=== PATIENT | female | born 1995 | race Caucasian/White ===

== ENCOUNTER 2019-09-14 06:42 | Outpatient (CLI) | payer BC, OTHER ==
[2019-09-14 17:58] LABS: #Basophils 0.1 thou/uL (0.0-0.2); #Eosinphils 0.1 thou/uL (0.0-0.7); #Lymphocytes 2.1 thou/uL (1.20-3.40); #Monocytes 0.7 thou/uL (0.11-0.59); #Neutrophils 3.6 thou/uL (1.40-6.50); %Basophils 1.5 % (0.0-1.0); %Eosinophils 2.1 % (0.0-10.0); %Lymphocytes 31.7 % (21.0-51.0); %Monocytes 10.1 % (0.0-10.0); %Neutrophils 54.6 % (42.0-75.0); Hemoglobin 13.1 g/dL (12.0-16.0); Mean Corpuscular HGB CONC 33.1 g/dL (32.0-36.0); Mean Corpuscular Volume 90.7 fL (78.0-98.0); Mean Platelet Volume 7.7 fL (7.4-10.4); Platelet Count 233 thou/uL (130-400); RBC Distribution Width 12.4 % (11.5-14.5); Red Blood Cell (RBC) Count 4.36 mill/uL (4.20-5.40); White Blood Cell (WBC) Count 6.7 thou/uL (4.8-10.8)
[2019-09-14 18:13] LABS: Anion Gap 11 mmol/L (10-20); BUN (Urea Nitrogen) 12 mg/dL (7.0-18.7); Calc. Creatinine Clearance 0 mL/min (70-130); Calcium 9.7 mg/dL (7.8-10.44); Carbon Dioxide 26 mmol/L (22-29); Chloride 106 mmol/L (98-107); Estimated GFR-MDRD 86; Glucose 84 mg/dL (70-105); Potassium 4.2 mmol/L (3.5-5.1); Sodium 139 mmol/L (136-145)
[2019-09-15 18:04] LABS: SARS-CoV-2 MS2 Positive; SARS-CoV-2 N Gene Negative; SARS-CoV-2 S Gene Negative; SARS-CoV-2 orf1ab Negative
== END 2019-09-14 06:43 | disposition home or self-care (01) ==
LOC: LABBT 06:42
PROVIDERS: ATTEND Specialist
DX: Z01.812 Encounter for preprocedural laboratory examination (principal); Z11.59 Encounter for screening for other viral diseases; N63.20 Unspecified lump in the left breast, unspecified quadrant
CPT/HCPCS: 80048; 85025; 87635; U0003

== ENCOUNTER 2019-09-16 05:51 | Day surgery (SDC) | payer BC ==
[2019-09-16] MEDS ORDERED: Acetaminophen 500 MG TAB ONE (06:19)
[2019-09-16] MEDS ORDERED: Ketorolac Tromethamine 30 MG/ML VIAL ONE (06:19)
[2019-09-16] MEDS ORDERED: CEFAZOLIN 1 GM VIAL ONE (06:19)
[2019-09-16] MEDS ORDERED: Lidocaine 1% w/Epinephrine 1:100K 20 ML VIAL ONE (06:58)
[2019-09-16] MEDS ORDERED: Bupivacaine 0.25% HCL 30 ML VIAL ONE (06:58)
[2019-09-16] MEDS ORDERED: Fentanyl 250 MCG/5 ML VIAL ONE (07:05)
[2019-09-16] MEDS ORDERED: Midazolam HCl 2 mg/2 ml Vial ONE (07:05)
[2019-09-16 07:12] LABS: BHCG - Serum Negative (NEGATIVE); Pregs Control Background? CLEAR/WHITE (CLR/WHITE); Pregs Control Bar Appear? YES (CONTROL BAR)
[2019-09-16] MEDS ORDERED: Dexamethasone 20 MG/5 ML VIAL ONE (11:43)
[2019-09-16] MEDS ORDERED: PROPOFOL 200 MG/20 ML VIAL ONE (11:43)
[2019-09-16] MEDS ORDERED: Ondansetron PF 4 MG/2 ML Vial ONE (11:43)
[2019-09-16] MEDS ORDERED: diphenhydrAMINE 50 MG/ML VIAL ONE (11:43)
--- NOTE | 2019-09-16 18:15 | OP ---
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 PROCEDURE PERFORMED: Excision of two separate left breast masses consistent with fibroadenoma. ANESTHESIA: General with laryngeal mask airway and local using a mixture of 1% lidocaine with epinephrine and 0.25% Marcaine. INDICATIONS: The patient is a 24-year-old white female. She had presented with a large masses within the left breast. One of these was medial and measured at least 4 cm in biggest dimension. The larger of the two was superior and measured close to 6 cm. She was taken to the operating room for resection of these. For cosmetic reasons, I planned to remove them both through the same incision. DESCRIPTION OF OPERATION: Informed consent was obtained. The patient was taken to the operating room, where general anesthesia was obtained with patient supine position. Left breast was prepped with ChloraPrep and draped in sterile fashion. Local anesthetic was infiltrated using a mixture of 1% lidocaine with epinephrine and 0.25% Marcaine. An incision was fashioned extending radially at about the 9 o'clock radian and then circumareolar around the top of the areola. Dissection was carried through skin and subcutaneous tissue. Attention was turned first to the smaller/medial lesion. Dissection was carried down through breast tissue onto this. It was grasped with a towel clip. It was carefully dissected circumferentially using a combination of blunt and sharp dissection. Hemostasis was maintained with electrocautery. The specimen was removed from within the breast and submitted to Pathology. Attention was then turned to the superior lesion. In a similar fashion, dissection was carried through breast tissue down to this. It was again grasped and carefully dissected from surrounding tissue. It was also removed through the same incision and submitted to Pathology. Hemostasis was obtained meticulously using electrocautery. The wound was irrigated. It was then closed in layers using 3-0 Vicryl to approximate the deep layer and a running subcuticular suture of 4-0 Monocryl. Additional local anesthetic was instilled some into the lower wound and some into the upper wound. Skin edges approximated with 4-0 Monocryl subcuticular suture. Dermabond was placed externally. There were no complications. Blood loss was negligible. The patient tolerated the procedure well, was taken to recovery room in stable condition. Job ID: [id number]
== END 2019-09-16 10:53 | disposition home or self-care (01) ==
LOC: SDC 05:51
PROVIDERS: ATTEND Specialist
PROC: 0HBU0ZZ Excision of Left Breast, Open Approach (ICD-10-PCS; principal; 2019-09-16)
DX: D24.2 Benign neoplasm of left breast (principal)
CPT/HCPCS: 84703; 88305; J0690; J1100; J1200; J1885; J2250; J2405; J2704; J3010; S0020